=== PATIENT | female | born 1940 ===

== ENCOUNTER 2018-08-28 16:24 | Emergency (ER) | payer OTHER ==
[2018-08-28 16:24] VITALS: BMI 21.9
[2018-08-28 16:26] VITALS: BP 209/81; TEMP 97
--- NOTE | 2018-08-28 16:47 | ED.PDOC ---
General ED Provider: Dr. AMADOR SEGUNDO Chief Complaint: Hypertension Stated Complaint: Elevated BP. Markedly anxious, and BP elevation. Has been more anxious dealing with her husbands recently. Denies focal weakness but experiencing headache plus numbness and tingling face and arms. Her daughter an RN present states she does not do well with med. Prev Rx Metoprolol by PCP but did not tolersate. No focal weakness, chest pain or visual changes. Time Seen by Physician: 16:35 Mode of Arrival: Walk-In Information Source: Patient Exam Limitations: No limitations Primary Care Provider: AMADOR POPE Nursing and Triage Documentation Reviewed and Agree: Yes Does patient meet sepsis criteria?: No If yes, has appropriate treatment been initiated?: No System Inflammatory Response Syndrome: Not Applicable Sepsis Protocol: For patient's 13 years and over: Temp is 96.8 and below OR 101 and greater Pulse >90 BPM Resp >20/minute Acutely Altered Mental Status Are patient's symptoms suggestive of a new infection, such as: -Pneumonia -Skin, Soft Tissue -Endocarditis -UTI -Bone, Joint Infection -Implantable Device -Acute Abdominal Infection -Wound Infection -Meningitis -Blood Stream Catheter Infection -Unknown Cardiovascular Complaint Exam - Hypertension Complaint/Exam Onset/Duration: earlier today Symptoms Are: Still present Timing: Constant Aggravating: Reports: Exertion (anxiety) Alleviating: Reports: Rest Associated Signs and Symptoms: Reports: Anxiety, Recent stress, Headache, Numbness, Tingling, Weakness, Dizziness Related History: Denies: Similar episode Related Surgical History: Reports: None Cardiac Risk Factors: Reports: Hypertension Recent Change in Medications: No A/V Nicking: No JVD Present: No Carotid Bruit Present: No Femoral Pulses Bounding: No Differential Diagnoses: Hypertension, Hypertensive Urgency Quality Indicator For Non-Traumatic Chest Pain/Syncope: EKG Performed Review of Systems - Review Of Systems Constitutional: Reports: No symptoms Eyes: Reports: No symptoms Ears, Nose, Mouth, Throat: Reports: No symptoms Respiratory: Reports: No symptoms Cardiac: Reports: No symptoms GI: Reports: No symptoms : Reports: No symptoms Musculoskeletal: Reports: No symptoms Skin: Reports: No symptoms Neurological: Reports: Anxiety Endocrine: Reports: No symptoms Hematologic/Lymphatic: Reports: No symptoms All Other Systems: Reviewed and Negative Past Medical History - Past Medical History Previously Healthy: Yes Endocrine: Reports: None Cardiovascular: Reports: Hypertension Respiratory: Reports: None Hematological: Reports: None Gastrointestinal: Reports: None Genitourinary: Reports: None Neuro/Psych: Reports: Anxiety Musculoskeletal: Reports: None Cancer: Reports: None Last Menstrual Period: N/A - Surgical History General Surgical History: Reports: None - Family History Family History: Reports: None - Social History Smoking Status: Never smoker Hx Substance Use: No Alcohol Screening: None - Immunizations Tetanus Shot up to Date: No Physical Exam - Physical Exam Appearance: Well-appearing, No pain distress, Well-nourished Pain Distress: None Eyes: JACOB, EOMI, Conjunctiva clear ENT: Ears normal, Nose normal, Oropharynx normal Respiratory: Airway patent, Breath sounds clear, Breath sounds equal, Respirations nonlabored Cardiovascular: RRR, Pulses normal, No rub, No murmur GI/: Soft, Nontender, No masses, Bowel sounds normal, No Organomegaly Musculoskeletal: Normal strength, ROM intact, No edema, No calf tenderness Skin: Warm, Dry, Normal color Neurological: Sensation intact, Motor intact, Reflexes intact, Cranial nerves intact, Alert, Oriented Psychiatric: Affect appropriate, Mood appropriate, Anxious Critical Care Note - Critical Care Note Total Time (mins): 60 Course - Course Hematology/Chemistry: 08/28/18 16:35 08/28/18 16:35 Orders, Labs, Meds: Lab Review 08/28/18 08/28/18 16:35 16:35 WBC 13.37 H RBC 3.78 L Hgb 10.3 L Hct 32.0 L MCV 84.7 MCH 27.2 MCHC 32.2 RDW Coeff of Chay 14.3 Plt Count 490 H Immature Gran % (Auto) 0.4 Neut % (Auto) 58.8 Lymph % (Auto) 32.8 [place] % (Auto) 6.1 Eos % (Auto) 1.5 Baso % (Auto) 0.4 Immature Gran # (Auto) 0.1 Neut # (Auto) 7.9 H Lymph # (Auto) 4.4 H [place] # (Auto) 0.8 Eos # (Auto) 0.2 Baso # (Auto) 0.1 ESR 92 H Sodium 138.9 Potassium 3.15 L Chloride 101.7 Carbon Dioxide 24.8 Anion Gap 15.55 BUN 8.2 Creatinine 0.77 Estimated GFR (MDRD) 73.00 BUN/Creatinine Ratio 10.64 Glucose 145.8 H Calcium 9.43 Total Bilirubin 0.34 AST 29.3 ALT 13.3 Alkaline Phosphatase 146.9 H Total Creatine Kinase 57.4 Troponin I < 0.012 Total Protein 9.25 H Albumin 4.75 Globulin 4.50 Albumin/Globulin Ratio 1.05 Orders Category Date Time Status EKG-(ED ONLY) Stat CARDIO 08/28/18 16:47 Completed OXYGEN Routine CARDIO 08/28/18 16:47 Ordered IV [ED IV/MEDIPORT/POWERPORT] .ONCE EMERGENCY 08/28/18 16:47 Active CBC W/ AUTO DIFF Stat LAB 08/28/18 16:35 Completed CMP [COMPREHENSIVE METABOLIC PANEL] Stat LAB 08/28/18 16:35 Completed CPK [CREATINE KINASE] Stat LAB 08/28/18 16:35 Completed ESR Stat LAB 08/28/18 16:35 Completed TROPONIN I Stat LAB 08/28/18 16:35 Completed 0.9 % Sodium Chloride [Saline Flush] MEDS 08/28/18 16:47 Active 1 syr IVF PRN PRN Clonidine HCl [Catapres] MEDS 08/28/18 16:49 Discontinued 0.1 mg PO ONCE STA Potassium Chloride [K-Dur] MEDS 08/28/18 18:09 Discontinued 20 meq PO ONCE STA CHEST, 1V AP ONLY Stat RADS 08/28/18 16:47 Completed Medications Generic Name Dose Route Start Last Admin Trade Name Freq PRN Reason Stop Dose Admin Sodium Chloride 1 syr 08/28/18 16:47 Saline Flush IVF PRN PRN To flush IV Discontinued Medications Generic Name Dose Route Start Last Admin Trade Name Freq PRN Reason Stop Dose Admin Clonidine 0.1 mg 08/28/18 16:49 08/28/18 16:56 Catapres PO 08/28/18 16:50 0.1 mg ONCE STA Administration Potassium Chloride 20 meq 08/28/18 18:09 08/28/18 18:38 K-Dur PO 08/28/18 18:10 20 meq ONCE STA Administration Vital Signs: Temp Pulse Resp BP Pulse Ox 08/28/18 16:24 97.0 F L 115 H 18 209/81 H 97 CRISTA Risk Score CRISTA Risk Score: Risk Score Odds of by 30D 0 0.1 (0.1-0.2) 1 0.3 (0.2-0.3) 2 0.4 (0.3-0.5) 3 0.7 (0.6-0.9) 4 1.2 (1.0-1.5) 5 2.2 (1.9-2.6) 6 3.0 (2.5-3.6) 7 4.8 (3.8-6.1) Departure - Departure Time of Disposition: 18:45 Disposition: HOME SELF-CARE Discharge Problem: Hypertensive urgency, Anxiety Instructions: Hypertension (ED), Heart Healthy Diet (ED), Hypertension in the Older Adult (ED), Anxiety (ED) Condition: Fair Pt referred to PMD for follow-up: Yes (Dr Pope tomorrow) IPMP verified?: No Additional Instructions: Monitor BP at home Take meds as directed See Dr Pope for follow up Heart Healthy Diet Prescriptions: Lisinopril 10 mg PO DAILY #10 tablet Allergies/Adverse Reactions: Allergies No Known Allergies Allergy (Verified 08/28/18 16:26) Home Medications: Ambulatory Orders Hydroxyzine HCl 25 mg PO QID PRN #20 tablet 08/28/18 Lisinopril 10 mg PO DAILY #10 tablet 08/28/18
[2018-08-28] MEDS ORDERED: CATAPRES PO STA (16:49)
--- NOTE | 2018-08-28 18:07 | DI ---
Exam: Single view of the chest. Comparison: None available. Reason for exam: Uncontrolled hypertension. FINDINGS: No pneumothorax, pleural effusion, or focal consolidation. Ground-glass is seen in the le ft lower lobe likely accentuated by summation artifact. Impression: 1. Ground-glass in the left lower lobe is likely accentuated by summation artifact but may also repr esent small effusion. Consider two-view chest x-ray for further characterization. 2. No pneumothorax or focal air space consolidations are seen.
[2018-08-28] MEDS ORDERED: K-DUR PO STA (18:09)
== END 2018-08-28 19:15 | disposition home or self-care (01) ==
LOC: ED 16:24
DX: F41.9 Anxiety disorder, unspecified (principal); R51 Headache; R20.0 Anesthesia of skin; I16.0 Hypertensive urgency
CPT/HCPCS: 36415; 80053; 82550; 84484; 85025; 85651; 93005; 93010; 99284